=== PATIENT | female | born 1960 | race Caucasian/White ===

== ENCOUNTER 2023-06-29 10:53 | Inpatient (IN) | payer BC, SELFPAY ==
[2023-06-29 04:55] LABS: #Eosinphils 0.1 thou/uL (0.0-0.7); #Monocytes 0.4 thou/uL (0.11-0.59); #Neutrophils 7.6 thou/uL (1.40-6.50); %Basophils 0.4 % (0.0-1.0); %Eosinophils 0.7 % (0.0-10.0); %Lymphocytes 8.6 % (21.0-51.0); %Monocytes 4.7 % (0.0-10.0); %Neutrophils 85.2 % (42.0-75.0); Hematocrit 43.6 % (36.0-47.0); Hemoglobin 14.9 g/dL (12.0-16.0); Mean Corpuscular HGB CONC 34.2 g/dL (32.0-36.0); Mean Corpuscular Volume 90.8 fl (78.0-98.0); Mean Platelet Volume 10.2 fL (7.4-10.4); Platelet Count 267 10x3/uL (130-400); White Blood Cell (WBC) Count 8.9 10x3/uL (4.8-10.8)
[2023-06-29 05:19] LABS: ALT (SGPT) 254 U/L (8-55); AST (SGOT) 334 U/L (5-34); Albumin 4.9 g/dL (3.5-5.0); Alkaline Phosphatase 186 U/L (40-110); Anion Gap 17 mmol/L (10-20); BUN (Urea Nitrogen) 20 mg/dL (9.8-20.1); Bilirubin, Total 1.5 mg/dL (0.2-1.2); Calc. Creatinine Clearance 0 mL/min (70-130); Carbon Dioxide 24 mmol/L (22-29); Chloride 104 mmol/L (98-107); Estimated GFR 84; Globulin 2.6 g/dL (2.4-3.5); Glucose 165 mg/dL (70-105); Protein, Total 7.5 g/dL (6.0-8.3); Sodium 141 mmol/L (136-145)
[2023-06-29 05:23] LABS: Troponin I Less than 0.010 ng/mL (< 0.028)
[2023-06-29 08:00] LABS: Bacteria/HPF 1+ HPF (None Seen); Bilirubin Negative (Negative); Blood, Urine Negative (Negative); CAUTI Indications for Culture Pelvic or flank pain; Clarity Clear (Clear); Glucose, Urine (Dipstick) Normal (Negative); Ketone, Urine Negative (Negative); Leukocyte 75 Leu/uL (Negative); Nitrite Negative (Negative); Protein, Urine (Dipstick) Negative (Neg-Trace); RBC/HPF 0-3 HPF (0-3); Specific Gravity, Urine 1.015 (1.002-1.036); Urobilinogen Normal mg/dL (Less than 2); WBC/HPF 0-3 HPF (0-3); pH, Urine 7.5 (5.0-9.0)
[2023-06-29 08:02] LABS: Urine Culture Reflex No No
[2023-06-29 08:05] LABS: Prothrombin Time 13.6 sec (12.0-14.7)
[2023-06-29 08:06] LABS: PTT 32.1 sec (22.9-36.1)
[2023-06-29 09:19] VITALS: BMI 28.1
[~2023-06-29 10:53] MED LIST: LevoFLOXacin 750 mg/D5W 150 ml Premix Bag ONE; Morphine 4 MG/ML VIAL ONE; Ondansetron PF 4 MG/2 ML Vial ONE; Pantoprazole 40 MG VIAL ONE
[2023-06-29] MEDS ORDERED: Scopolamine 1.5 mg/72 hour Patch ONE (11:31)
[2023-06-29] MEDS ORDERED: EPINEPHrine 1 MG/ML AMP ONE (12:29)
[2023-06-29] MEDS ORDERED: Iopamidol 15 ML ONE (12:29)
[2023-06-29] MEDS ORDERED: Bupivacaine PF 0.5% 30 ML VIAL ONE (12:29)
[2023-06-29] MEDS ORDERED: SUGAMMADEX SODIUM 200 MG/2 ML VIAL ONE (12:32)
[2023-06-29] MEDS ORDERED: fentaNYL PF 100 MCG/2 ML SYRINGE ONE (12:32)
[2023-06-29] MEDS ORDERED: Lidocaine 1% PF 5 ML VIAL ONE (13:07)
[2023-06-29] MEDS ORDERED: Dexamethasone 20 MG/5 ML VIAL ONE (13:07)
[2023-06-29] MEDS ORDERED: PROPOFOL 200 MG/20 ML VIAL ONE (13:07)
[2023-06-29] MEDS ORDERED: Ondansetron PF 4 MG/2 ML Vial ONE (13:07)
[2023-06-29] MEDS ORDERED: ePHEDrine Sulfate 50 MG/10 ML VIAL ONE (13:07)
[2023-06-29] MEDS ORDERED: Rocuronium Bromide 10 MG/ML (10ML VIAL) ONE ×2 (13:07→14:18)
[2023-06-29] MEDS ORDERED: PHENYLEPHRINE-NS 100 MCG/ML 10 ML SYRINGE ONE (13:07)
[2023-06-29] MEDS ORDERED: Glucagon 1 MG/ML KIT ONE (13:34)
[2023-06-29] MEDS ORDERED: Iopamidol 30 ML ONE (13:50)
[2023-06-29] MEDS ORDERED: TETANUS, DIPHTHERIA TOX,ADULT (TDVAX) 0.5 ML VIAL IM ONE (14:49)
[2023-06-29] MEDS ORDERED: Morphine 4 MG/ML VIAL SLOW IVP PRN (14:49)
[2023-06-29] MEDS ORDERED: traMADol HCl 50 MG TAB PO PRN (14:49)
[2023-06-29] MEDS ORDERED: Ondansetron PF 4 MG/2 ML Vial IVP PRN (14:49)
[2023-06-29] MEDS ORDERED: hydrALAZINE 20 MG/ML VIAL SLOW IVP PRN (14:49)
[2023-06-29] MEDS ORDERED: Ondansetron ODT 4 MG TAB PO PRN (14:49)
[2023-06-29] MEDS ORDERED: Cyclobenzaprine 10 MG TAB PO PRN (14:53)
[2023-06-29] MEDS ORDERED: Indomethacin 50 MG SUPP ONE (15:04)
[2023-06-29] MEDS ORDERED: HYDROmorphone 2 MG/ML VIAL SLOW IVP PRN (15:08)
[2023-06-29] MEDS ORDERED: Promethazine HCl 25 MG/ML VIAL IM PRN (15:08)
[2023-06-29] MEDS ORDERED: Ondansetron HCl/PF 4 MG/2 ML Vial IVP PRN (15:08)
[2023-06-29] MEDS ORDERED: Meperidine HCl/PF 25 MG/ML VIAL SLOW IVP PRN (15:08)
[2023-06-29] MEDS: Gabapentin 300 MG CAP PO SCH ×2 (18:35→21:53)
[2023-06-29] MEDS: Lactated Ringer's 1,000 ML IV SCH ×2 (18:35→20:41)
[2023-06-29] MEDS: Ketorolac Tromethamine 30 MG/ML VIAL IVP SCH (18:41)
[2023-06-29] MEDS: Acetaminophen 500 MG TAB PO SCH ×2 (18:42→21:52)
[2023-06-29] MEDS ORDERED: Gabapentin 300 MG CAP PO SCH (21:00)
[2023-06-29] MEDS ORDERED: Melatonin 3 MG TAB PO SCH (21:00)
[2023-06-30] MEDS: Ketorolac Tromethamine 30 MG/ML VIAL IVP SCH ×2 (00:36→06:00)
[2023-06-30] MEDS: Lactated Ringer's 1,000 ML IV SCH (06:03)
[2023-06-30 06:14] LABS: #Monocytes 0.8 thou/uL (0.11-0.59); #Neutrophils 6.9 thou/uL (1.40-6.50); %Basophils 0.2 % (0.0-1.0); %Eosinophils 0.1 % (0.0-10.0); %Lymphocytes 12.8 % (21.0-51.0); %Monocytes 8.4 % (0.0-10.0); %Neutrophils 78.1 % (42.0-75.0); Hematocrit 36.5 % (36.0-47.0); Mean Corpuscular HGB CONC 32.9 g/dL (32.0-36.0); Mean Corpuscular Hemoglobin 30.2 pg (27.0-31.0); Mean Corpuscular Volume 91.9 fl (78.0-98.0); Mean Platelet Volume 10.2 fL (7.4-10.4); Platelet Count 206 10x3/uL (130-400); Red Blood Cell (RBC) Count 3.97 mill/uL (4.20-5.40); White Blood Cell (WBC) Count 8.9 10x3/uL (4.8-10.8)
[2023-06-30 06:40] LABS: ALT (SGPT) 484 U/L (8-55); AST (SGOT) 301 U/L (5-34); Albumin 3.7 g/dL (3.5-5.0); Alkaline Phosphatase 193 U/L (40-110); Anion Gap 12 mmol/L (10-20); BUN (Urea Nitrogen) 14 mg/dL (9.8-20.1); Calc. Creatinine Clearance 91 mL/min (70-130); Calcium 8.9 mg/dL (7.8-10.44); Carbon Dioxide 24 mmol/L (22-29); Chloride 110 mmol/L (98-107); Estimated GFR 78; Globulin 1.9 g/dL (2.4-3.5); Glucose 93 mg/dL (70-105); Lipase 20 U/L (8-78); Potassium 3.9 mmol/L (3.5-5.1); Protein, Total 5.6 g/dL (6.0-8.3); Sodium 142 mmol/L (136-145)
[2023-06-30 08:04] VITALS: BP 131/77; TEMP 98.8
[2023-06-30] MEDS: Acetaminophen 500 MG TAB PO SCH (08:25)
[2023-06-30] MEDS: Gabapentin 300 MG CAP PO SCH (08:27)
[2023-06-30] MEDS ORDERED: VIT E ACET PO SCH (09:00)
[2023-06-30] MEDS ORDERED: Ferrous Sulfate 325 MG TAB PO SCH (09:00)
[2023-06-30] MEDS ORDERED: UBIDECARENONE PO SCH (09:00)
[2023-06-30] MEDS ORDERED: Ascorbic Acid 500 mg Chewable Tablet PO SCH (09:00)
[2023-06-30] MEDS ORDERED: Pantoprazole 40 MG VIAL IVP SCH (09:00)
[2023-06-30] MEDS ORDERED: HYDROcodone/Acetaminophen 5/325 mg Tablet PO SCH (09:00)
[2023-06-30] MEDS ORDERED: Polyethylene Glycol 3350 17 GM Packet PO SCH (09:00)
== END 2023-06-30 09:28 | disposition home or self-care (01) | DRG 417 ==
LOC: SDC 10:53 → T4-B 17:05
PROVIDERS: ADMIT Specialist; ATTEND Specialist
PROC: 0FT44ZZ Resection of Gallbladder, Percutaneous Endoscopic Approach (ICD-10-PCS; principal; 2023-06-29)
PROC: 0F798ZZ Dilation of Common Bile Duct, Via Natural or Artificial Opening Endoscopic (ICD-10-PCS; 2023-06-29)
PROC: BF141ZZ Fluoroscopy of Gallbladder, Bile Ducts and Pancreatic Ducts using Low Osmolar Contrast (ICD-10-PCS; 2023-06-29)
DX: K80.66 Calculus of gallbladder and bile duct with acute and chronic cholecystitis without obstruction (principal); K85.10 Biliary acute pancreatitis without necrosis or infection; Z79.899 Other long term (current) drug therapy; K21.9 Gastro-esophageal reflux disease without esophagitis; J45.909 Unspecified asthma, uncomplicated; Z96.643 Presence of artificial hip joint, bilateral; Z98.890 Other specified postprocedural states
CPT/HCPCS: 36415; 47532; 71045; 74330; 76705; 80053; 81001; 83690; 84484; 85025; 85610; 85730; 88304; 93005; 96361; 96365; 96375; C1889; C9113; J0171; J1100; J1611; J1650; J1885; J1956; J2270; J2405; J2704; J7120; Q0162; Q9967; S0020